=== PATIENT | male | born 1970 | race Two or more races ===

== ENCOUNTER 2023-08-28 07:25 | Emergency (ER) | payer SELFPAY ==
[~2023-08-28] VITALS: Ht 172.7 cm; Wt 91.0 kg
[2023-08-28 07:38] VITALS: O2SAT 100
[2023-08-28] MEDS ORDERED: CEPH500T MT (08:37)
[2023-08-28] MEDS ORDERED: SULF1TAB48 MT (08:37)
[2023-08-28] MEDS: IBUPROFEN 600MG TABLET PO ONE (08:45)
[2023-08-28] MEDS: CEPHALEXIN 250MG CAPSULE PO ONE (08:45)
[2023-08-28] MEDS: SULFAMETHOXAZOLE/TRIMETHOPRIM 800/160MG TABLET PO ONE (08:45)
[2023-08-28 08:59] VITALS: BP 138/81; PULSE 78; RESP 18; TEMP 97.9
== END 2023-08-28 09:00 | disposition home or self-care (01) ==
LOC: ER 07:25
DX: L02.212 Cutaneous abscess of back [any part, except buttock and flank] (principal)
CPT/HCPCS: 10060; 99284; Z7610